=== PATIENT | female | born 1930 | race Caucasian/White ===

== ENCOUNTER 2016-09-15 14:55 | Emergency (ER) | payer MEDICARE, MEDICAID ==
[~2016-09-15] VITALS: Ht 162.6 cm; Wt 80.5 kg
--- NOTE | 2016-09-15 15:12 | ED.REPORT ---
HPI-General Illness Date of Service Sep 15, 2016 ED Provider: Dr. Esquivel An 85 year female with a history of irregular heartbeat and HTN presents to the ED complaining of intermittent chest pain described as heaviness onset today around noon, rated 6-7/10 at onset. Heaviness has had minor improvement since onset. She also experienced a similar episode yesterday. Currently, the heaviness is only there a little bit, rated 1/10. She has had episodes of similar symptoms in the past attributed to irregular heartbeat , but the symptoms have never been this bad. Associated weakness reports hot sensation behind eyes and in forehead. She reports foot swelling a couple of days ago that has since resolved. She denies any SOB , dizziness, nausea, vomiting, leg pain, or leg swelling. Nursing Notes Stated Complaint: CARDIAC Allergies: Coded Allergies: No Known Allergies (Unverified , 09/15/16) General Time Seen by MD: 15:11 Chief Complaint Chest pain Hx Obtained From: Patient, EMS Arrived By: Ambulance Sudden in Onset?: Yes Symptom Duration: Intermittent Severity: Current: Pain level 1 out of 10 Severity: Maximum: Pain level 7 out of 10 Recent Healthcare: No recent doctor visit Similar Sx Previous: No Past Medical History Past Medical History Notes: no ichemic changes Past Medical History Irregular heartbeat Denies Hx of LA Reports: Hypertension, Denies: Diabetes mellitus Review of Systems Full Review of Systems Respiratory: Denies: Shortness of breath Cardiovascular: Reports: Chest pain GI: Denies: Nausea, Vomiting Musculoskeletal: Denies: Extremity pain, Extremity swelling Neurologic: Reports: Weakness, Denies: Dizziness Complete sys rev & neg: except as marked. Physical Exam Vital Signs Vital Signs Date Time Temp Pulse Resp B/P Pulse Ox O2 Delivery O2 Flow Rate FiO2 09/15/16 15:36 68 10 146/64 98 Nasal Cannula 2 09/15/16 15:24 36.6 88 12 146/64 96 Room Air Initial VS: Reviewed, Vital signs normal General/Constitutional: Awake, Alert Head / Eyes: Atraumatic, Normocephalic, PERRL, EOMI ENT: Atraumatic, Mucous membranes moist Respiratory / Chest: Atraumatic, Breath sounds NL, Breath sounds = bilat, No respiratory distress, No rales, No rhonchi, No wheezing Cardiovascular: No gallop, No murmurs, No rubs Heart Rate / Rhythm: Positive: Tachycardia Abdomen: Atraumatic, Soft, Non-tender, No guarding, No rebound Skin: Warm Patient is warm and diaphoretic. Neurologic: Oriented X3, Speech NL Interpretation & Diagnostics Lab Results Interpretation Result Diagram: 09/15/16 1505 09/15/16 1505 Test 09/15/16 15:05 09/15/16 15:22 09/15/16 16:55 White Blood Count 10.5th/mm3 (3.8-10.1) Red Blood Count 5.51mil/mm3 (3.90-5.20) Hemoglobin 17.2g/dL (12.0-15.6) Hematocrit 51.6% (35.0-46.0) Mean Corpuscular Volume 93.6fL (81-100) Mean Corpuscular Hemoglobin 31.2pg (27.0-35.0) Mean Corpuscular Hemoglobin Concent 33.3% (32.0-37.0) Red Cell Distribution Width 13.6% (12.3-15.4) Platelet Count 330bil/L (150-400) Neutrophils (%) (Auto) 68.1% (40-74) Lymphocytes (%) (Auto) 22.3% (14-46) Monocytes (%) (Auto) 6.8% (4-12) Eosinophils (%) (Auto) 2.2% (0-5) Basophils (%) (Auto) 0.4% (0-3) Hold Purple Top Tube Received (Received) Prothrombin Time 10.0sec (8.1-12.5) Prothromb Time International Ratio 0.94ratio Hold Blue Top Tube Received (Received) Sodium Level 136mEq/L (134-144) Potassium Level 4.3mEq/L (3.5-5.2) Chloride Level 96mEq/L (97-108) Carbon Dioxide Level 21mmol/L (18-29) Blood Urea Nitrogen 9mg/dL (8-27) Creatinine 0.63mg/dL (0.57-1.00) Estimat Glomerular Filtration Rate 128mL/min (>59) Glucose Level 104mg/dL (60-99) Calcium Level 10.1mg/dL (8.5-10.1) Magnesium Level 1.9mg/dL (1.6-2.6) Total Bilirubin 0.4mg/dL (0.0-1.2) Aspartate Amino Transf (AST/SGOT) 18U/L (0-50) Alanine Aminotransferase (ALT/SGPT) 13U/L (0-32) Alkaline Phosphatase 106U/L (25-165) Pro-B-Type Natriuretic Peptide 110.2pg/mL (0-738) Total Protein 7.5g/dL (6.4-8.4) Albumin 4.6g/dL (3.4-5.0) Hold [place] Top Tube Received (Received) Hold [place] Top Tube Received (Received) Urine Color Straw (YELLOW) Urine Appearance Clear (CLEAR,HAZY) Urine pH 5.5 (5.0-8.0) Urine Specific [place] 1.010 (1.003-1.035) Urine Protein Negativemg/dL (NEG,TRACE) Urine Glucose (UA) Negativemg/dL (NEGATIVE) Urine Ketones Negativemg/dL (NEGATIVE) Urine Occult Blood Trace (NEGATIVE) Urine Nitrite Negative (NEGATIVE) Urine Bilirubin Negative (NEGATIVE) Urine Urobilinogen Normalmg/dL (NORMAL) Urine Leukocyte Esterase Negative (NEGATIVE) Urine RBC 0-2/hpf (0-2) Urine WBC 0-5/hpf (0-5) Urine Epithelial Cells Occasional/hpf (NONE-MOD) Urine Crystals None seen (NONE SEEN) Urine Bacteria None/hpf (NONE-FEW) Urine Hyaline Casts None/lpf (NONE) Urine Granular Casts None seen (NONE SEEN) Urine Waxy Casts None seen (NONE SEEN) Urine Red Blood Cell Casts None seen (NONE SEEN) Urine White Blood Cell Casts None seen (NONE SEEN) Urine Mucus None seen (None Seen) Urine Trichomonas None seen (NONE SEEN) Urine Yeast None (NONE SEEN) Urinalysis Comment None Urine Culture Reflexed Not indicated Hold Urine Received (Received) Troponin T < 0.010ug/L (0.0-0.011) ECG Interpretation ECG Interpretation: Rate is 198. SVT. Time: 15:15 Interpreted by: ED physician ECG Interpretation: Rate is 74. Sinus rhythm with no acute ST or T wave changes. Time: 15:20 Interpreted by: ED physician X-Ray Chest Interpretation Chest Xray Interpretation: IMPRESSION: 1. Air-filled ovoid structure overlying the left heart with possible air fluid level is most suggestive of a large hiatal hernia. 2. Left basilar airspace disease may represent atelectasis versus pneumonia. 3. Possible right midlung pulmonary nodule. A CT of the chest is recommended for further evaluation. Dictated by: Santos Sanders M.D. on 09/15/2016 at 14:57 Approved by: Santos Sanders M.D. on 09/15/2016 at 14:59 Interpretation / Wet Read by: Interpret - Radiologist Re-Eval/Medical Decision Med Decision/Clinical Course While in route, the patient converted to sinus rhythm however when she got up to use the bathroom she went back into SVT and had return of her chest heaviness. It appears her heaviness is related to SVT. It sounds like she has had multiple episodes which started yesterday. The patient converted to sinus after receiving some diltiazem and remained in sinus even with activity. The patient's initial repeat troponin were negative, slightly her heaviness is related to the SVT. Given the duration of her symptoms over the course of 2 days with a normal troponin and EKG, she essentially ruled out for LA. Source of Hx: Old records Time of Eval: 18:00 Patient Status: Condition improved Re-Evaluation/Progress Note: Rechecked patient, explained test results, diagnosis, and plan for discharge. Patient understands and agrees with the plan. All questions addressed. 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 You may need new group home medication if symptoms persist. Return to the emergency department for any recurrent symptoms. Referrals: BE[facility] Reynoso Attestation Portions of this note were transcribed by Velasquez Lui. I, Dr. Esquivel personally performed the history, physical exam and medical decision-making; I reviewed and confirmed the accuracy of the information in the transcribed note. Signed by: Angeles Chinchilla, 09/15/2016, [id number]. copies to: Ramandeep Fernandez MD Sep 15, 2016 15:12 Velasquez Lui Sep 15, 2016 15:20
[2016-09-15] MEDS ORDERED: Diltiazem 5 mg/mL 5 mL Inj ONE (15:13)
[2016-09-15 15:24] VITALS: BP 146/64; PULSE 88; RESP 12; O2SAT 96
[2016-09-15] MEDS ORDERED: 0.9% Sodium Chloride 1,000 ML IV ONE (15:24)
[2016-09-15 15:36] VITALS: BP 146/64; PULSE 68; RESP 10; O2SAT 98
[2016-09-15 15:36] LABS: BASOPHILS % (AUTO) 0.4 % (0-3); EOSINOPHILS % (AUTO) 2.2 % (0-5); MONOCYTES % (AUTO) 6.8 % (4-12); Mean Corpuscular Hemoglobin 31.2 pg (27.0-35.0); Mean Corpuscular Volume 93.6 fL (81-100); NEUTROPHILS % (AUTO) 68.1 % (40-74); Platelet Count 330 bil/L (150-400)
[2016-09-15 15:40] LABS: INR 0.94 ratio
[2016-09-15 15:55] LABS: TROPONIN T < 0.010 ug/L (0.0-0.011)
--- NOTE | 2016-09-15 16:01 | DRSVH ---
PROCEDURE: X-RAY CHEST ONE VIEW, PORTABLE ([id number]) INDICATIONS: heaviness TECHNIQUE: One view of the chest was acquired. COMPARISON: None. FINDINGS: Surgical changes and devices: None. Lungs and pleura: There is a large air filled structure superimposed over the left heart border. Add itional partial opacification of the left lung base is present. There appears to be a nodular struct ure within the right mid chest measuring 1.5 cm. Mediastinum: Mediastinal contours appear normal. Heart size is normal. Bones and chest wall: No suspicious bony lesions. Overlying soft tissues appear unremarkable. IMPRESSION: 1. Air-filled ovoid structure overlying the left heart with possible air fluid level is most suggest mayi of a large hiatal hernia. 2. Left basilar airspace disease may represent atelectasis versus pneumonia. 3. Possible right midlung pulmonary nodule. A CT of the chest is recommended for further evaluation . Dictated by: Santos Sanders M.D. on 09/15/2016 at 14:57 Approved by: Santos Sanders M.D. on 09/15/2016 at 14:59
[2016-09-15 16:05] LABS: Magnesium 1.9 mg/dL (1.6-2.6)
[2016-09-15 16:53] LABS: APPEARANCE,URINE CLEAR (CLEAR,HAZY); COLOR,URINE STRAW (YELLOW); OCCULT BLOOD,URINE TRACE (NEGATIVE); PH,URINE 5.5 (5.0-8.0); UROBILINOGEN,URINE NORMAL (NORMAL)
[2016-09-15] MEDS ORDERED: 0.9% Sodium Chloride 500 ML IV ONE (17:15)
[2016-09-15 19:14] VITALS: BP 159/83; PULSE 76; RESP 18; O2SAT 95
== END 2016-09-15 19:12 | disposition home or self-care (01) ==
LOC: EDBD 14:55 → SED 14:55
DX: I47.1 Supraventricular tachycardia (principal); R07.9 Chest pain, unspecified; R53.1 Weakness; I10 Essential (primary) hypertension
CPT/HCPCS: 36415; 71010; 80053; 81000; 83735; 83880; 84484; 85025; 85610; 93005; 96361; 96374; 99285; J7030